=== PATIENT | female | born 1990 | race Caucasian/White ===

== ENCOUNTER 2018-08-26 11:06 | Outpatient (CLI) | payer OTHER | END 2018-08-26 11:07 | disposition home or self-care (01) | LOC: C.LAB 11:06 | DX: Z34.93 Encounter for supervision of normal pregnancy, unspecified, third trimester (principal) ==

== ENCOUNTER 2018-11-15 04:43 | Inpatient (IN) | payer SELFPAY ==
[2018-11-15] MEDS ORDERED: Lactated Ringer's 1,000 ML IV ONE (05:16)
[2018-11-15] MEDS ORDERED: Oxytocin 30 UNIT in NS 500 ml 30 UNITS/500 ML BAG IV ONE (05:20)
[2018-11-15] MEDS ORDERED: Oxycodone/Acetaminophen 5/325 mg Tab PO PRN (05:20)
[2018-11-15] MEDS ORDERED: Benzocaine/Menthol 20%-0.5% Topical Spray (60 ml) TOP PRN (05:20)
--- NOTE | 2018-11-15 05:36 | OBHP ---
Datetime: 11/15/2018 05:24 IP Adm Impression: Term, intrauterine IP Admit Plan: Admit to unit; Initiate labor protocol Admit Comment, IP Provider: 28 yo female with an IUP at 39.6 weeks and came in active labor and proceeded to have a precipitous vaginal delivery. Denied any problems with this and st ates that she started with contractions early in the day but they got worse at about 3 AM. Denied leighton zonia of fluid or vaginal bleeding PMHX and PSHx: Negative Meds: PNV NKDA Social Denies x 3 PE: as noted above A/P Term in active labor Precipitous vaginal delivery GBS positive and no time to give Antibiotic Pelvic Type - PN: Adequate Extremities - PN: Normal Abdomen - PN: Normal Back - PN: Normal Breast - PN: Not Done Lungs - PN: Normal Heart - PN: Normal Thyroid - PN: Normal Neurologic - PN: Normal HEENT - PN: Normal General - PN: Normal IP Hx Assessment: The History has been Reviewed and is Current EGA AdmitDate IP: 39.6 Vital Signs Provider: Reviewed IP Indication for Induction: Not Applicable IP Chief Complaint: Uterine contractions Genitourinary Exam: Normal DTRs - PN: Normal
[2018-11-15 05:40] LABS: BASO % 0.3 % (0.0-2.0); EOS # 0.1 K/uL (0.0-0.7); HEMOGLOBIN 13.3 g/dL (11.0-16.0); LYMPH % 37.9 % (20.0-40.0); MEAN CELL VOLUME 86.7 fL (81.0-99.0); MEAN CORPUSCULAR HEMOGLOBIN 28.5 pg (27.0-31.0); MEAN CORPUSCULAR HGB CONC 32.9 g/dL (33.0-37.0); MEAN PLATELET VOLUME 9.6 fL (7.2-11.7); MONO # 0.4 K/uL (0.0-0.8); MONO % 5.3 % (0.0-10.0); NEUT # 4.4 K/uL (1.8-7.0); NEUT % 55.5 % (50.0-75.0); NRBC % 0.1 % (0.0-2.0); RBC 4.65 Mil/uL (3.80-5.20); RED CELL DISTRIBUTION WIDTH 15.8 % (11.5-14.5)
--- NOTE | 2018-11-15 05:48 | OBDS ---
DELIVERY PERSONNEL Delivery Doctor: Usman Brown DO Cnc Milling Machine Operator: Glenna Riddle RN MATERNAL INFORMATION Delivery Anesthesia: None Medications in Delivery: Pitocin 20 units IV Placenta Cultured: No Maternal Complications: None RN Comments: to a live baby boy with 9-9 Provider Comments: Precipitous vaginal delivery by Nursing of a viable Male after SROM with clear fluid, per Nursing. I arrive, inmediately after been notified, and clampped the cord, passed th e baby to pediatric nurse, collect Cord blood and cord pH and deliver the placenta spontaneously. Pit ocin infusion was initiated. EBL 200 mls Intact perineum Pt and tolerated the procedure well and remained in S_S condition LABOR SUMMARY EDC: 11/16/2018 00:00 No. Babies in Womb: 1 Attempted: No Labor Anesthesia: None LABOR INFORMATION Reason for Induction: Not Applicable Onset of Labor: 11/15/2018 01:00 Complete Dilatation: 11/15/2018 04:48 Oxytocin: N/A Group B Beta Strep: Positive Antibiotics # of Doses: 0 Antibiotics Time of Last Dose: 0 Steroids Given: None Reason Steroids Not Administered: Not Applicable MEMBRANES Membranes Rupture Method: Spontaneous Rupture of Membranes: 11/15/2018 04:48 Length of Rupture (hrs): 0.17 Amniotic Fluid Color: Clear Amniotic Fluid Amount: Moderate Amniotic Fluid Odor: Normal STAGES OF LABOR Stage 1 hrs: 3 Stage 1 min: 48 Stage 2 hrs: 0 Stage 2 min: 10 Stage 3 hrs: 0 Stage 3 min: 7 Total Time in Labor hrs: 4 Total Time in Labor min: 5 VAGINAL DELIVERY Episiotomy: None Laceration Extension: N/A Laceration Type: None Initial Vag Sponge Count: 10 Final Vag Sponge Count: 10 Initial Vag Sharps Count: 0 Final Vag Sharps Count: 0 Sponge Count Correct: Yes; Vaginal Sweep Performed Sharps Count Correct: N/A BABY A INFORMATION Delivery Date/Time: 11/15/2018 04:58 Method of Delivery: Vaginal Born in Route : No : N/A Forceps: N/A Vacuum Extraction: N/A Shoulder Dystocia : No SHOULDER DYSTOCIA BABY A Infant Delivery Date/Time: 11/15/2018 04:58 PRESENTATION/POSITION BABY A Presentation: Cephalic Cephalic Presentation: Vertex Vertex Position: Left Occipital Anterior Breech Presentation: N/A PLACENTA INFORMATION BABY A Placenta Delivery Time : 11/15/2018 05:05 Placenta Method of Delivery: Spontaneous Placenta Status: Delivered SCORES BABY A Heart Rate 1 min: >100 bpm Resp Effort 1 min: Good Cry Reflex Irritability 1 min: Cough or Sneeze or Pulls Away Muscle Tone 1 min: Active Motion Color 1 min: Body [place], Extremities Blue SCORE 1 MIN: 9 Heart Rate 5 min: >100 bpm Resp Effort 5 min: Good Cry Reflex Irritability 5 min: Cough or Sneeze or Pulls Away Muscle Tone 5 min: Active Motion Color 5 min: Body [place], Extremities Blue SCORE 5 MIN: 9 INFORMATION BABY A Gestational Status: Term Outcome : Liveborn Condition : Stable Sex: Male IDENTIFICATION/MEDS BABY A ID Band Number: [id number] ID Band Location: Left Leg; Left Arm Sensor Applied: Yes Sensor Number: [id number] Sensor Location : Cord Clamp Vitamin K Given : Aquamephyton 1 mg IM; Left Thigh Erythromycin Given: Given Both Eyes WEIGHT/LENGTH BABY A Birthweight (gms): 3630 Weight (lb): 8 Infant Weight (oz): 0 Length Inches: 20.00 Infant Length cms: 50.8 CORD INFORMATION BABY A No. Cord Vessels: 3 Nuchal Cord : N/A Cord Blood Taken: Yes Suction: None ASSESSMENT BABY A Complications: None Physical Findings at Delivery: Molding of the Head Respirations: Appears Normal Rod Piler/ALS Called : No Infant Care By: RAQUEL Transferred To: Remains with Mother
[2018-11-15 05:53] LABS: SQUAMOUS EPITHIAL 1 /hpf (0-5); URINE BACTERIA OCC (<OCC); URINE BILIRUBIN NEGATIVE (NEGATIVE); URINE BLOOD 1+ (NEGATIVE); URINE CLARITY Hazy (Clear); URINE COLOR Yellow (YELLOW); URINE GLUCOSE (UA) NORMAL (Normal); URINE LEUKOCYTE ESTERASE NEG Leu/uL (Negative); URINE PROTEIN NEGATIVE (NEGATIVE); URINE UROBILINOGEN NORMAL mg/dL (0.2-1.0)
[2018-11-15] MEDS: Multiple Vitamins Tab PO SCH (10:49)
[2018-11-16 00:19] VITALS: O2SAT 98
[2018-11-16 08:14] LABS: BASO % 0.4 % (0.0-2.0); EOS # 0.1 K/uL (0.0-0.7); EOS % 1.5 % (0.0-4.0); HEMOGLOBIN 11.6 g/dL (11.0-16.0); LYMPH # 3.3 K/uL (1.0-4.3); MEAN CELL VOLUME 86.7 fL (81.0-99.0); MEAN CORPUSCULAR HEMOGLOBIN 28.9 pg (27.0-31.0); MEAN CORPUSCULAR HGB CONC 33.4 g/dL (33.0-37.0); MEAN PLATELET VOLUME 9.4 fL (7.2-11.7); MONO # 0.4 K/uL (0.0-0.8); MONO % 4.7 % (0.0-10.0); NEUT # 5.3 K/uL (1.8-7.0); NEUT % 57.4 % (50.0-75.0); NRBC % 0.1 % (0.0-2.0); RED CELL DISTRIBUTION WIDTH 16.5 % (11.5-14.5); WHITE BLOOD COUNT 9.2 K/uL (4.8-10.8)
[2018-11-16] MEDS: Multiple Vitamins Tab PO SCH (09:16)
--- NOTE | 2018-11-16 10:55 | OBPPN ---
Datetime: 11/16/2018 10:39 PP Pain Prov: Within normal limits PP Nausea Prov: Denies PP Flatus Prov: Yes PP BM Prov: Yes PP Breasts Prov: Normal PP Heart Prov: Normal PP Lungs Prov: Normal PP Abdomen/Uterus Prov: Normal PP Vulva/Perineum Prov: Normal PP CVA Tenderness Prov: Normal PP Extremities Prov: Normal PP C/S Incision Prov: Not Applicable PP Progress Prov: Normal PP Comments Phys Exam Prov: hgb 11.6 PP Impression Prov: Normal progression PP Plan Prov: Continue present management PP Progress Note Prov: s:no c/o. tolerating reg diet. no c/o of pain i: s/p doing well p: routine pp care. IP PP Procedures: None Vital Signs Provider PP: Within Normal Limits
[2018-11-17] MEDS: Multiple Vitamins Tab PO SCH (09:28)
--- NOTE | 2018-11-17 10:17 | OBPPN ---
Datetime: 11/17/2018 10:06 PP Pain Prov: Within normal limits PP Nausea Prov: Denies PP Flatus Prov: Yes PP BM Prov: Yes PP Breasts Prov: Normal PP Heart Prov: Normal PP Lungs Prov: Normal PP Abdomen/Uterus Prov: Normal PP Lochia Prov: Normal PP Vulva/Perineum Prov: Normal PP CVA Tenderness Prov: Normal PP Extremities Prov: Normal PP C/S Incision Prov: Not Applicable PP Progress Prov: Normal PP Comments Phys Exam Prov: Abdomen: (+) BS. Lax abdominal wall; obese. Soft. Non distended. Fundus firm, mobile, non tender, 18 weeks. MInimal lochia rubra. Extremities: no calf tenderness All other systems reviewed and are negative PP Impression Prov: Normal progression PP Plan Prov: Discharge PP Progress Note Prov: Patient received in room 460, reclining in bed; in good spirits. at be dside - sleeping. Denies headaches, dizziness, palpitations, chest pain, nausea, vomiting. Ambulating and voiding spontatneously. exclusively; advised to supplement. P.E.: as above. Mildly obese, in NAD. Awake, alert, oriented to time, person and place. Pleasant a nd cooperative. - Rh (+) Assessment: PPD#2, 28 y.o. P4, S/P precipituous vaginal delivery. Afebrile, vital signs stable. P atient desires permanent sterilization. H/H noted; patient is hemodynamically stable. patient is clin ically stable. Plan: 1) As above 2) Discharge home 3) See full discharge instructions IP PP Procedures: None Vital Signs Provider PP: Reviewed; Within Normal Limits
--- NOTE | 2018-11-17 10:18 | OBDCSUM ---
Datetime: 11/17/2018 10:15 Discharged to, Provider: Home Follow up at, Provider: [facility] Disch Instr Activity: Normal activity; May be up to bathroom; May be up for meals; May Shower Disch Instr Diet: Regular Discharge Instructions, Provider: Routine instructions given Discharge Diagnosis, Provider: Term Delivered Discharge Time: 11/17/2018 10:16 Follow up in weeks, Provider: 6 weeks Contraception discussed, Prov: Yes Disch Activity Restrictions: No lifting; No sexual activity; Nothing in vagina - [place], tampon s, douche Discharge Diagnosis Prov Other: Grand multiparity GBS positive Contraception counseling Contraception after Delivery: Tubal Ligation
[2018-11-17 17:55] VITALS: BP 90/47; PULSE 77; RESP 18; TEMP 97.8
== END 2018-11-17 12:30 | disposition home or self-care (01) | DRG 807 ==
LOC: C.EROB 04:43 → C.4D 04:47 → C.4M 08:15
PROVIDERS: ADMIT Obstetrics & Gynecology; ATTEND Obstetrics & Gynecology
PROC: 10E0XZZ Delivery of Products of Conception, External Approach (ICD-10-PCS; principal; 2018-11-15)
DX: O62.3 Precipitate labor (principal); Z37.0 Single live birth; O99.824 Streptococcus B carrier state complicating childbirth; Z3A.39 39 weeks gestation of pregnancy; Z30.09 Encounter for other general counseling and advice on contraception